=== PATIENT | female | born 1980 | race Caucasian/White ===

== ENCOUNTER 2018-11-14 03:44 | Emergency (ER) | payer BC, OTHER ==
--- NOTE | 2018-11-14 04:06 | PDOC ---
History of Present Illness - General Chief Complaint: Pain Stated Complaint: ABD PAIN Time Seen by Provider: 11/14/18 04:05 History Source: Patient Exam Limitations: No Limitations - History of Present Illness Initial Comments: HPI: 38 y/o female presenting to [facility] ER complaining of left back, left flank, and left sided abdominal pain. Symptoms are acute on chronic for the past year, and acutely worsening over the past six months. States the pain starts on the left side of her back and wraps around to the front. Feels like a dull pain. Unable to identify eliciting or exciting factors. Associates stomach bloating and a feeling of warmth inside, but not fever. Symptoms improve with soaking in hot water. Endorses nausea without vomiting and chronic constipation. Last BM was yesterday and described as normal. Pt was evaluated at [facility] a few days ago for similar symptoms. Was given a GI cocktail and a muscle relaxer. Follow up GI appointment scheduled for this coming Wednesday. Symptoms resolved then returned again tonight around 3am. Pt reports drinking one alcoholic beverage tonight and smoking marijuana on Wednesday. Pt had a colonoscopy two years ago and was told it was normal aside from hemorrhoids. LMP: 19 Oct 2018, reportedly normal Social Hx: - Works as health insurance writer - EtOH: socially - Tobacco: Denies - Street Drugs: Occasional marijuana Medical Hx: - Pt denies past medical history. Denies prescription medications. Surgical Hx: - Pt denies past surgical history. Past History - Past Medical History Allergies/Adverse Reactions: Allergies Allergy/AdvReac Type Severity Reaction Status Date / Time No Known Allergies Allergy Verified 11/14/18 04:37 - Suicide/Smoking/Psychosocial Hx Smoking History: Never smoked Review of Systems - Review of Systems Able to Perform ROS?: Yes Comments:: In addition to that documented in the HPI above, the additional ROS was obtained : Constitutional: Denies fevers or chills Head: Denies headache ENMT: Denies sore throat CV: Denies chest pain Resp: Denies SOB GI: Denies vomiting, diarrhea, burning sensation in throat, or metallic taste in mouth : Denies painful urination, increased urinary frequency, hematuria, or vaginal discharge MSK: Denies recent trauma Skin: Denies new rashes Neuro: Denies new numbness or tingling or weakness Endocrine: Denies polyuria Heme: Endorses occasional unexplained bruising but not acute change or increase in frequency. Denies bleeding. *Physical Exam - Vital Signs Last Vital Signs Temp Pulse Resp BP Pulse Ox 36.6 C 72 19 134/73 100 11/14/18 03:59 11/14/18 03:59 11/14/18 03:59 11/14/18 03:59 11/14/18 03:59 - Physical Exam Comments: Constitutional: Well-developed, well-nourished, non-toxic female in no acute distress but obvious mild discomfort. Found left lateral decubitus position on hospital bed. Alert and oriented x4. Answered all questions appropriately and completely. Speech was non-labored, non-pressured. Head: Normocephalic. No obvious external signs of trauma. Eyes: Sclerae white. Ears: Hearing grossly intact. Nose: No nasal discharge. Neck: Supple, trachea is midline. Cardiovascular / Chest: Regular rate and regular rhythm. No murmur, rubs, clicks, or gallops. Peripheral pulses: radial pulses full. Respiratory: Breathing unlabored. Equal chest rise and fall. Clear to auscultation bilaterally. No stridor, no wheezing, no rhonchi. Gastrointestinal: abdomen is tender in middle of left side without grimace, rebound, or guarding. Globally, abdomen is soft and nondistended. No hepatosplenemegaly. No pulsatile masses. No overlying skin lesions or obvious signs of trauma. Neuro: Alert and oriented. Moving all four extremities spontaneously. Skin: Mild diaphoresis, pink, warm, and intact. : No R or L CVA tenderness. Psych: Affect: appropriate. Mood: normal. Moderate Sedation - Procedure Monitoring Vital Signs: Procedure Monitoring Vital Signs Temperature 36.6 C 11/14/18 03:59 Pulse Rate 72 11/14/18 03:59 Respiratory Rate 19 11/14/18 03:59 Blood Pressure 134/73 11/14/18 03:59 O2 Sat by Pulse Oximetry (%) 100 11/14/18 03:59 ED Treatment Course - LABORATORY CBC & Chemistry Diagram: 11/14/18 04:36 11/14/18 04:36 - RADIOLOGY Radiograph Interpretation: Spiral Non-Con Abdominal CT Franck Zuniga MD wrote on Nov 14, 2018 at 06:11 AM: Referring Physician: BISHOP TOLEDO Patient Name: MAGDALY MEDINA THIS IS A PRELIMINARY REPORT FROM [facility] DATE OF SERVICE: 2018-11-14 05:59:03 IMAGES: [id number] EXAM: CT abdomen and pelvis without contrast HISTORY: Left flank pain COMPARISON: None. FINDINGS: Lung bases are clear. The visualized cardiac chambers are normal size and configuration. Hepatic hypodensities may be cysts which can be followed up with nonemergent ultrasound. Normal unenhanced gallbladder, pancreas, spleen, adrenal glands and kidneys. The stomach and abdominal small and large bowel are normal. There is no aortic aneurysm. There is no significant retroperitoneal lymphadenopathy. The pelvic small and large bowel are normal. There is no evidence of appendicitis. The uterus and adnexal structures are normal. Urinary bladder is unremarkable. There is trace pelvic free fluid. No discrete pelvic lymphadenopathy is identified. IMPRESSION: No acute pathology. One or more of the following dose reduction techniques were used: automated exposure control, adjustment of the mA and/or kV according to patient size, use of iterative reconstructive technique. THIS DOCUMENT HAS BEEN ELECTRONICALLY SIGNED Dain Zuniga MD 11/14/2018 06:10 EST Medical Decision Making - Medical Decision Making *Reviewed vital signs and nursing notes. 38 y/o female with acute on chronic abdominal pain. No prior visit data available in [employer] [facility]. Pt not found in [facility] database. Recently evaluated at another facility for similar. Afebrile. Vitals unremarkable for hypotension or tachycardia. Physical exam as described above. No acute abdomen. Will trial viscous lidocaine, Maalox, and ranitidine for symptom relief. Will obtain CBC, BMP, Lipase, UA, Urine culture, and Urine porphobilinogen (for acute porphyria) to further evaluate. Phorphobilinogen is a send out test. Call back requested placed. CBC unremarkable for anemia or leukocytosis. BMP unremarkable for significant electrolyte derangement. eGFR >60. Pt reassessed and continues to experience discomfort. Will obtain spiral CT to evaluate for stone. CT unremarkable remarkable for acute pathology. Low suspicion for nephrolithiasis. Will defer pt to primary care for follow up on hypodensities in liver. Low suspicion for clinical relevance to acute presentation. Ordered LR IVFB for rehydration. Pt reassessed and reports feeling much better after the morphine. 11/14/18 07:00 Pt signed out to resident Dr. Burch after she was verbally appraised of the pts HPI, current ED course, and plan of management. Will reassess pt after completing IVFB. *DC/Admit/Observation/Transfer Diagnosis at time of Disposition: Left flank pain - Discharge Dispostion Condition at time of disposition: Good - Referrals Schedule a call back: Urine Porphobilinogen Referrals: [facility] [place] [facility] at [place] [Provider Group] Zainab Torres DO [Staff Physician] - - Patient Instructions - Post Discharge Activity
[2018-11-14 04:12] VITALS: TEMP 98; BMI 27.6
--- NOTE | 2018-11-14 04:18 | PDOC ---
Attending Attestation - Resident Resident Name: Tomás Jimenez - ED Attending Attestation I have performed the following: I have examined & evaluated the patient, The case was reviewed & discussed with the resident, I agree w/resident's findings & plan - HPI HPI: 11/14/18 05:48 Pt has left flank pain and left abd pain. She has some rebound, but no guarding. She is very gassy. She had alcohol last night. - Physicial Exam PE: 11/14/18 05:49 Agree with resident exam - Medical Decision Making 11/14/18 05:49 Pt has normal labs and normal US. However, GB stones and kidney stones and pancreatitis all run in the family. Pt is not . She is and she will be sent for spiral CT scan to r/o kidney stone. 11/14/18 06:08 Pt was given morphine for her pain and she will be hydrated with 1L NSS. 11/14/18 06:12 This is likely gas. 11/14/18 06:20 Patient Name: RUBEN MEDINA THIS IS A PRELIMINARY REPORT FROM [facility] DATE OF SERVICE: 2018-11-14 05:59:03 IMAGES: 323 EXAM: CT abdomen and pelvis without contrast HISTORY: Left flank pain COMPARISON: None. FINDINGS: Lung bases are clear. The visualized cardiac chambers are normal size and configuration. Hepatic hypodensities may be cysts which can be followed up with nonemergent ultrasound. Normal unenhanced gallbladder, pancreas, spleen, adrenal glands and kidneys. The stomach and abdominal small and large bowel are normal. There is no aortic aneurysm. There is no significant retroperitoneal lymphadenopathy. The pelvic small and large bowel are normal. There is no evidence of appendicitis. The uterus and adnexal structures are normal. Urinary bladder is unremarkable. There is trace pelvic free fluid. No discrete pelvic lymphadenopathy is identified. IMPRESSION: No acute pathology 11/14/18 06:32 Pt will be hydrated and ready to go home. Impression: GAS PAIN.
[2018-11-14] MEDS ORDERED: LIDOCAINE VISCOUS 2% ORAL/TOP 20 ML UNIT-DOSE CUP MM ONE (04:23)
[2018-11-14] MEDS ORDERED: MAG HYDROX/AL HYDROX/SIMETH 30 ML UNIT-DOSE CUP PO ONE (04:23)
[2018-11-14] MEDS ORDERED: RANITIDINE HCL 150 MG TABLET (FP) PO ONE (04:24)
[2018-11-14] MEDS ORDERED: MAG HYDROX/AL HYDROX/SIMETH 30 ML UNIT-DOSE CUP ONE (04:51)
[2018-11-14] MEDS ORDERED: LIDOCAINE VISCOUS 2% ORAL/TOP 20 ML UNIT-DOSE CUP ONE (04:51)
[2018-11-14] MEDS ORDERED: RANITIDINE HCL 150 MG TABLET (FP) ONE (04:51)
[2018-11-14 04:54] LABS: BASO % 0.5 % (0-2.0); HEMATOCRIT 38.9 % (32.4-45.2); HEMOGLOBIN 13.6 GM/dL (10.7-15.3); LYMPH % 35.4 % (8-40); MCH 30.8 pg (25.7-33.7); MCHC 35.1 g/dl (32.0-36.0); MEAN CELL VOLUME 87.9 fl (80-96); MEAN PLT VOLUME 8.5 fl (7.5-11.1); MONO % 6.9 % (3.8-10.2); NEUT % 55.2 % (42.8-82.8); PLATELET COUNT 248 K/MM3 (134-434); RBC 4.42 M/mm3 (3.60-5.2); RDW 13.1 % (11.6-15.6); WHITE BLOOD COUNT 7.4 K/mm3 (4.0-10.0)
[2018-11-14 04:58] LABS: URINE APPEARANCE CLEAR; URINE BILIRUBIN NEGATIVE (<2.0 mg/dL); URINE COLOR LTYELLOW; URINE GLUCOSE (UA) NEGATIVE (NEGATIVE); URINE KETONE NEGATIVE (NEGATIVE); URINE LEUK ESTERASE TRACE (NEGATIVE); URINE NITRITE NEGATIVE (NEGATIVE); URINE PROTEIN NEGATIVE (NEGATIVE); URINE UROBILINOGEN NEGATIVE mg/dL (0.2-1.0)
[2018-11-14 05:01] LABS: EPI CELLS RARE /HPF (FEW); URINE BACTERIA RARE /hpf (NONE SEEN)
[2018-11-14 05:14] LABS: ANION GAP 8 MMOL/L (8-16); BLOOD UREA NITROGEN 13 mg/dL (7-18); CALCIUM 8.4 mg/dL (8.5-10.1); CHLORIDE 109 mmol/L (98-107); CO2 25 mmol/L (21-32); CREATININE 0.7 mg/dL (0.55-1.3); GLUCOSE,RANDOM 96 mg/dL (74-106); LIPASE 256 U/L (73-393); SODIUM 142 mmol/L (136-145)
[2018-11-14] MEDS ORDERED: morphine CARPU-JECT 4 MG/1 ML DISP.SYRIN IVPUSH ONE (05:41)
[2018-11-14] MEDS ORDERED: MORPHINE SULFATE 2 MG/ML VIAL ONE (05:47)
[2018-11-14] MEDS ORDERED: SODIUM CHLORIDE 0.9% 500 ML INFUS.BAG IV ONE (06:17)
[2018-11-14] MEDS ORDERED: LACTATED RINGERS SOLUTION 1000 ML INFUS.BAG IV ONE (06:20)
--- NOTE | 2018-11-14 07:47 | PDOC ---
*Physical Exam - Vital Signs Last Vital Signs Temp Pulse Resp BP Pulse Ox 98 F 72 19 134/73 100 11/14/18 03:59 11/14/18 03:59 11/14/18 03:59 11/14/18 03:59 11/14/18 03:59 - Physical Exam Comments: 11/14/18 07:47 Sign out received from Dr. Jimenez. 38 yr old woman with left sided abdominal pain with normal labs and imaging treated with morphine and IVF, now with resolved pain. resting comfortably on reassessment. reviewed labs and image findings. agrees with plan to f/u with PCP as outpatient. and has an appointment with GI tomorrow. requests work note. answered her questions to her satisfaction. pt stable for outpatient f/u General Appearance: Yes: Appropriately Dressed ED Treatment Course - LABORATORY CBC & Chemistry Diagram: 11/14/18 04:36 11/14/18 04:36 - ADDITIONAL ORDERS Additional order review: Laboratory Results 11/14/18 11/14/18 11/14/18 04:36 04:36 04:36 Sodium 142 Potassium 4.0 Chloride 109 H Carbon Dioxide 25 Anion Gap 8 BUN 13 Creatinine 0.7 Creat Clearance w eGFR > 60 Random Glucose 96 Calcium 8.4 L Lipase 256 Urine Color Ltyellow Urine Appearance Clear Urine pH 5.0 Ur Specific [place] 1.023 Urine Protein Negative Urine Glucose (UA) Negative Urine Ketones Negative Urine Blood Negative Urine Nitrite Negative Urine Bilirubin Negative Urine Urobilinogen Negative Ur Leukocyte Esterase Trace Urine WBC (Auto) 1 Urine RBC (Auto) 1 Ur Epithelial Cells Rare Urine Bacteria Rare Urine HCG, Qual Negative 11/14/18 04:36 RBC 4.42 MCV 87.9 MCHC 35.1 RDW 13.1 MPV 8.5 Neutrophils % 55.2 Lymphocytes % 35.4 Monocytes % 6.9 Eosinophils % 2.0 Basophils % 0.5 - Medications Given in the ED: ED Medications Discontinued Medications Generic Name Dose Route Start Last Admin Trade Name Freq PRN Reason Stop Dose Admin Al Hydroxide/Mg Hydroxide 30 ml 11/14/18 04:23 11/14/18 05:06 Mylanta Oral Suspension - PO 11/14/18 04:24 30 ml ONCE ONE Administration Lactated Ringer's 1,000 ml 11/14/18 06:20 11/14/18 06:45 Lactated Ringers Solution IV 11/14/18 06:21 1,000 ml ONCE ONE Administration Lidocaine HCl 15 ml 11/14/18 04:23 11/14/18 05:07 Xylocaine 2% Viscous Oral - MM 11/14/18 04:24 15 ml ONCE ONE Administration Morphine Sulfate 2 mg 11/14/18 05:41 11/14/18 05:52 Morphine Injection - IVPUSH 11/14/18 05:42 2 mg ONCE ONE Administration Ranitidine HCl 150 mg 11/14/18 04:24 11/14/18 05:07 Zantac - PO 11/14/18 04:25 150 mg ONCE ONE Administration Sodium Chloride 1,000 ml 11/14/18 06:17 11/14/18 06:28 Normal Saline - IV 11/14/18 06:18 1,000 ml ONCE ONE Administration *DC/Admit/Observation/Transfer Diagnosis at time of Disposition: Left flank pain - Discharge Dispostion Disposition: HOME Condition at time of disposition: Good - Referrals Schedule a call back: Urine Porphobilinogen Referrals: [facility] [place] [facility] at [place] [Provider Group] Zainab oTrres DO [Staff Physician] - - Patient Instructions Additional Instructions: Referrals for a primary care doctor and a GI doctor have been provided for you, please call to make appointments. A copy of your CT scan has provided for you to take to your doctor's appointments. If you develop fevers, chest pain, worsening abdominal pain, trouble breathing or any new symptoms please return to the hospital. - Post Discharge Activity Forms/Work/School Notes: Back to Work
[2018-11-14 07:48] VITALS: BP 119/66; PULSE 61
== END 2018-11-14 07:53 | disposition home or self-care (01) ==
LOC: JER 03:44
PROC: 3E033NZ Introduction of Analgesics, Hypnotics, Sedatives into Peripheral Vein, Percutaneous Approach (ICD-10-PCS; principal; 2018-11-14)
DX: R10.9 Unspecified abdominal pain (principal)
CPT/HCPCS: 36415; 74176-TC; 80048; 81003; 81015; 83690; 84703; 85025; 87086; 99282-25

== ENCOUNTER 2018-11-24 10:35 | Emergency (ER) | payer OTHER ==
[2018-11-24 10:54] VITALS: BP 130/83; PULSE 76; TEMP 98; BMI 26.5
[2018-11-24] MEDS ORDERED: KETOROLAC TROMETHAMINE 30 MG/1 ML VIAL IVPUSH ONE (13:13)
[2018-11-24] MEDS ORDERED: PANTOPRAZOLE SODIUM 40 MG in SODIUM CHLORIDE 100 ML IVPB ONE (13:13)
[2018-11-24] MEDS ORDERED: KETOROLAC TROMETHAMINE 30 MG/1 ML VIAL ONE (13:26)
[2018-11-24] MEDS ORDERED: PANTOPRAZOLE SODIUM 40 MG/100 ML BAG IVPB ONE (13:26)
--- NOTE | 2018-11-24 13:26 | PDOC ---
History of Present Illness <Hamida Barrow - Last Filed: 11/24/18 14:46> - General History Source: Patient Exam Limitations: No Limitations - History of Present Illness Travel History: No Initial Comments: 11/24/18 13:27 38 y/o female presents to the ED with c/o luq pain without alleviating/ aggravating factors. Pt states was seen here 2 weeks ago for the same and d/c'd home with pepcid. Pt states followed up with a GI specialist and had a colonoscopy with - findings. Pt states is scheduled for an endoscopy next week but states sharp pain to her LUQ is severe. Pt denies fever, wt changes, bowel or urinary complaints. Timing/Duration: reports: constant Quality: reports: moderate, burning, sharpness Abdominal Pain Onset Location: reports: LUQ Pain Radiation: reports: no radiation Activities at Onset: reports: none Aggravating Factors: improves with: None Alleviating Factors: improves with: None <Lorena Mixon - Last Filed: 11/24/18 15:54> - General Chief Complaint: Pain Stated Complaint: ABDOMINAL PAIN Time Seen by Provider: 11/24/18 12:18 Past History <Hamida Barrow - Last Filed: 11/24/18 14:46> - Travel Traveled outside of the country in the last 30 days: No Close contact w/someone who was outside of country & ill: No - Past Medical History COPD: No Other medical history: DENIES - Immunization History Immunization Up to Date: Yes - Suicide/Smoking/Psychosocial Hx Smoking History: Current some day smoker Have you smoked in the past 12 months: Yes Information on smoking cessation initiated: No Hx Alcohol Use: Yes (SOCIAL) Drug/Substance Use Hx: No Patient Lives Alone: No Lives with/in: spouse/SO <Lorena Mixon - Last Filed: 11/24/18 15:54> - Past Medical History Allergies/Adverse Reactions: Allergies Allergy/AdvReac Type Severity Reaction Status Date / Time No Known Allergies Allergy Verified 11/24/18 10:54 Home Medications: Ambulatory Orders NK [No Known Home Medication] 11/24/18 Review of Systems - Review of Systems Able to Perform ROS?: No Is the patient limited British proficient: No Constitutional: No: Symptoms Reported HEENTM: No: Symptoms Reported Respiratory: No: Symptoms reported Cardiac (ROS): No: Symptoms Reported ABD/GI: Yes: Abdominal cramping : No: Symptoms Reported Musculoskeletal: No: Symptoms Reported Integumentary: No: Symptoms Reported Neurological: No: Symptoms reported Hematologic/Lymphatic: No: Symptoms Reported <Lorena Mixon - Last Filed: 11/24/18 15:54> *Physical Exam - Vital Signs Last Vital Signs Temp Pulse Resp BP Pulse Ox 98.0 F 76 17 130/83 99 11/24/18 10:49 11/24/18 10:49 11/24/18 10:49 11/24/18 10:49 11/24/18 10:49 <Hamida Barrow - Last Filed: 11/24/18 14:46> - Vital Signs Last Vital Signs Temp Pulse Resp BP Pulse Ox 98.0 F 76 17 130/83 99 11/24/18 10:49 11/24/18 10:49 11/24/18 10:49 11/24/18 10:49 11/24/18 10:49 - Physical Exam General Appearance: Yes: Nourished, Appropriately Dressed. No: Apparent Distress HEENT: negative: Pale Conjunctivae Neck: positive: Normal Thyroid, Supple Respiratory/Chest: positive: Lungs Clear, Normal Breath Sounds. negative: Respiratory Distress, Accessory Muscle Use Cardiovascular: positive: Regular Rhythm, Regular Rate. negative: Murmur Gastrointestinal/Abdominal: positive: Soft, Tenderness (luq pain) Rectal Exam: negative: heme negative stool Musculoskeletal: positive: CVA Tenderness (L) (mild) Extremity: positive: Normal Capillary Refill. negative: Pedal Edema Integumentary: positive: Normal Color, Warm, Moist Neurologic: positive: Normal Mood/Affect, Motor Strength 5/5 (ambulatory) <Lorena Mixon - Last Filed: 11/24/18 15:54> Moderate Sedation - Procedure Monitoring Vital Signs: Procedure Monitoring Vital Signs Temperature 98.0 F 11/24/18 10:49 Pulse Rate 76 11/24/18 10:49 Respiratory Rate 17 11/24/18 10:49 Blood Pressure 130/83 11/24/18 10:49 O2 Sat by Pulse Oximetry (%) 99 11/24/18 10:49 <Hamida Barrow - Last Filed: 11/24/18 14:46> - Procedure Monitoring Vital Signs: Procedure Monitoring Vital Signs Temperature 98.0 F 11/24/18 10:49 Pulse Rate 76 11/24/18 10:49 Respiratory Rate 17 11/24/18 10:49 Blood Pressure 130/83 11/24/18 10:49 O2 Sat by Pulse Oximetry (%) 99 11/24/18 10:49 <Lorena Mixon - Last Filed: 11/24/18 15:54> ED Treatment Course - LABORATORY CBC & Chemistry Diagram: 11/24/18 13:15 11/24/18 13:15 - ADDITIONAL ORDERS Additional order review: Laboratory Results 11/24/18 11/24/18 13:15 13:15 Sodium 137 Potassium 4.7 Chloride 107 Carbon Dioxide 26 Anion Gap 4 L BUN 11 Creatinine 0.6 Creat Clearance w eGFR > 60 Random Glucose 78 Calcium 8.6 Total Bilirubin 0.6 AST 29 ALT 31 Alkaline Phosphatase 54 Total Protein 6.8 Albumin 3.7 Lipase 117 Urine Color Yellow Urine Appearance Slcloudy Urine pH 5.0 Ur Specific [place] 1.025 Urine Protein Negative Urine Glucose (UA) Negative Urine Ketones Negative Urine Blood 1+ H Urine Nitrite Negative Urine Bilirubin Negative Urine Urobilinogen Negative Ur Leukocyte Esterase Trace Urine WBC (Auto) 4 Urine RBC (Auto) 1 Ur Epithelial Cells Rare Urine Mucus Rare Urine HCG, Qual Negative 11/24/18 13:15 RBC 4.60 MCV 87.3 MCHC 35.3 RDW 12.7 MPV 8.3 Neutrophils % 50.7 Lymphocytes % 41.5 H Monocytes % 6.2 Eosinophils % 1.2 Basophils % 0.4 - Medications Given in the ED: ED Medications Discontinued Medications Generic Name Dose Route Start Last Admin Trade Name Karen PRN Reason Stop Dose Admin Pantoprazole Sodium 40 mg/ 100 mls @ 200 mls/hr 11/24/18 13:13 11/24/18 13:30 Sodium Chloride IVPB 11/24/18 13:42 200 mls/hr ONCE ONE Administration Ketorolac Tromethamine 30 mg 11/24/18 13:13 11/24/18 13:30 Toradol Injection - IVPUSH 11/24/18 13:14 30 mg ONCE ONE Administration <Hamida Barrow - Last Filed: 11/24/18 14:46> - LABORATORY CBC & Chemistry Diagram: 11/24/18 13:15 11/24/18 13:15 <Lorena Mixon - Last Filed: 11/24/18 15:54> Medical Decision Making - Medical Decision Making The patient was seen and evaluated in conjunction with midlevel provider under my direct supervision, ancillary studies were reviewed. I agree with the plan as outlined by_ JODY Mixon. HPI, workup/dispo as outlined. VS reviewed, wnl. labs and lytes, UA neg for infection, neg preg test. meds provided, prior similar sx and neg colonoscopy as outpatient discharge home, PCP/GI followup 11/24/18 14:46 <Hamida Barrow - Last Filed: 11/24/18 14:46> - Medical Decision Making 11/24/18 13:45 CC: luq pain without associated s/s, had colonoscopy 2 weeks ago. Pt states is on pepcid w/ no improvement. Exam: luq tenderness , mild cva tenderness Plan: labs, urine, u preg , protonix, and toradol 11/24/18 13:50 Laboratory Tests 11/24/18 13:15 Urine HCG, Qual Negative 11/24/18 15:52 Laboratory Tests 11/24/18 11/24/18 11/24/18 13:15 13:15 13:15 WBC 6.0 Hgb 14.1 Hct 40.1 Neutrophils % 50.7 Lymphocytes % 41.5 H Sodium 137 Potassium 4.7 Chloride 107 Carbon Dioxide 26 Anion Gap 4 L BUN 11 Creatinine 0.6 Creat Clearance w eGFR > 60 Random Glucose 78 Calcium 8.6 Total Bilirubin 0.6 AST 29 ALT 31 Alkaline Phosphatase 54 Total Protein 6.8 Albumin 3.7 Lipase 117 Urine Blood 1+ H Urine Nitrite Negative Ur Leukocyte Esterase Trace Urine WBC (Auto) 4 Urine RBC (Auto) 1 Urine HCG, Qual Negative Patient states feeling much better and tolerated lunch. Patient will be discharged home with protonix and recommended to stop taking the Pepcid. Patient has a follow-up appointment next week with the dental laboratory technician apprentice for endoscopy. <Lorena Mixon - Last Filed: 11/24/18 15:54> *DC/Admit/Observation/Transfer <Hamida Barrow - Last Filed: 11/24/18 14:46> <Lorena Mixon - Last Filed: 11/24/18 15:54> Diagnosis at time of Disposition: Left upper quadrant pain - Discharge Dispostion Disposition: HOME Condition at time of disposition: Improved - Patient Instructions Printed Discharge Instructions: DI for Epigastric Pain Additional Instructions: At this time recommend following a non-greasy spicy or acidy diet. Please take protonix as prescribed and stop taking the Pepcid. Please follow-up with the gatroenterologist next week. If symptoms do not improve over the next 72 hours please return to the ED
[2018-11-24 13:28] LABS: HCG,QUALITATIVE URINE Negative
[2018-11-24 13:30] LABS: BASO % 0.4 % (0-2.0); EOS % 1.2 % (0-4.5); HEMATOCRIT 40.1 % (32.4-45.2); HEMOGLOBIN 14.1 GM/dL (10.7-15.3); LYMPH % 41.5 % (8-40); MCH 30.8 pg (25.7-33.7); MCHC 35.3 g/dl (32.0-36.0); MEAN CELL VOLUME 87.3 fl (80-96); MEAN PLT VOLUME 8.3 fl (7.5-11.1); MONO % 6.2 % (3.8-10.2); NEUT % 50.7 % (42.8-82.8); PLATELET COUNT 271 K/MM3 (134-434); RDW 12.7 % (11.6-15.6)
[2018-11-24 14:19] LABS: URINE APPEARANCE SLCLOUDY; URINE BILIRUBIN NEGATIVE (<2.0 mg/dL); URINE COLOR YELLOW; URINE GLUCOSE (UA) NEGATIVE (NEGATIVE); URINE KETONE NEGATIVE (NEGATIVE); URINE LEUK ESTERASE TRACE (NEGATIVE); URINE NITRITE NEGATIVE (NEGATIVE); URINE PROTEIN NEGATIVE (NEGATIVE); URINE UROBILINOGEN NEGATIVE mg/dL (0.2-1.0)
[2018-11-24 14:20] LABS: ALBUMIN 3.7 g/dl (3.4-5.0); ALK PHOS 54 U/L (45-117); ANION GAP 4 MMOL/L (8-16); BILIRUBIN,TOTAL 0.6 mg/dL (0.2-1); BLOOD UREA NITROGEN 11 mg/dL (7-18); CALCIUM 8.6 mg/dL (8.5-10.1); CHLORIDE 107 mmol/L (98-107); CO2 26 mmol/L (21-32); CREATININE 0.6 mg/dL (0.55-1.3); GLUCOSE,RANDOM 78 mg/dL (74-106); LIPASE 117 U/L (73-393); SGOT/AST 29 U/L (15-37); SGPT/ALT 31 U/L (13-61); SODIUM 137 mmol/L (136-145); TOT PROT 6.8 g/dl (6.4-8.2)
[2018-11-24 14:27] LABS: EPI CELLS RARE /HPF (FEW); URINE MUCUS RARE
[2018-11-24 14:28] LABS: POTASSIUM 4.7 mmol/L (3.5-5.1)
== END 2018-11-24 16:00 | disposition home or self-care (01) ==
LOC: JER 10:35
PROC: 3E033GC Introduction of Other Therapeutic Substance into Peripheral Vein, Percutaneous Approach (ICD-10-PCS; principal; 2018-11-24)
PROC: 3E0333Z Introduction of Anti-inflammatory into Peripheral Vein, Percutaneous Approach (ICD-10-PCS; 2018-11-24)
DX: R10.12 Left upper quadrant pain (principal); F17.210 Nicotine dependence, cigarettes, uncomplicated
CPT/HCPCS: 36415; 80053; 81003; 81015; 83690; 84703; 85025; 87086; 99282-25